=== PATIENT | female | born 1990 | race African-American/Black ===

== ENCOUNTER → 2016-09-23 | Day surgery (SDC) | payer OTHER ==
[~2016-09-23] VITALS: Ht 167.6 cm; Wt 74.8 kg
[~2016-09-23] MED LIST: DOCUSATE SODIUM 100 MG CAP PO PRN; HYDROmorphone HCL 1 MG/ML SYRINGE (J1170) IV PRN; KETOROLAC 60 MG/2 ML VIAL (J1885) As Ordered ONE; LIDOCAINE 2% INJ 100 MG/5 ML SDV (FOR ANES.) As Ordered ONE; LR 1,000 ML IV ONE; LR 1,000 ML IV SCH; MIDAZOLAM INJ 2 MG/2 ML VIAL (J2250) As Ordered ONE; NO HOME MEDS; ONDANSETRON 4MG/2ML VIAL (J2405) As Ordered ONE; ONDANSETRON 4MG/2ML VIAL (J2405) IV PRN; PERCOCET 5MG/325MG TAB As Ordered ONE; PERCOCET 5MG/325MG TAB PO PRN; PROPOFOL 200 MG/20 ML VIAL As Ordered ONE; ROCURONIUM BROMIDE 50 MG/5 ML VIAL/SYRINGE As Ordered ONE; dexameTHASONE 4 MG/ML 1ML VIAL (J1100) As Ordered ONE; fentaNYL 100 MCG/2 ML INJECTION (J3010) As Ordered ONE; fentaNYL 100 MCG/2 ML INJECTION (J3010) IV PRN
[2016-09-23 10:54] LABS: CONTROL LINE HCG INT CTR LINE PRESENT
[2016-09-23 11:22] LABS: BASO % 0.2 % (0.0-1.0); EOS # 0.1 K/mm3 (0.0-0.50); EOS % 1.1 % (0.0-3.0); LARGE UNSTAINED CELL # 0.1 K/mm3 (0.0-0.4); LARGE UNSTAINED CELL % 1.7 % (0.0-4.0); LYMPH # 2.1 K/mm3 (1.5-6.5); LYMPH % 30.7 % (24.0-44.0); MEAN CORPUSCULAR HGB CONC 33.1 g/dl (32.0-36.5); MEAN CORPUSCULAR VOLUME 87.4 fl (80.0-96.0); MONO # 0.2 K/mm3 (0.0-0.8); MONO % 2.5 % (0.0-5.0); NEUTROPHILS # 4.2 K/mm3 (1.8-7.7); NEUTROPHILS % 63.7 % (36.0-66.0); PLATELET COUNT, AUTOMATED 246 k/mm3 (150-450); RED CELL DISTRIBUTION WIDTH 13.5 % (11.5-14.5); WHITE BLOOD COUNT 6.6 K/mm3 (4.0-10.0)
[2016-09-23 14:48] VITALS: BP 122/80
--- NOTE | 2016-09-24 20:26 | RO ---
DATE OF PROCEDURE: 09/23/2016 PREPROCEDURE DIAGNOSES: 1. Endometrial polyp. 2. Intermenstrual spotting. POSTPROCEDURE DIAGNOSES: 1. Endometrial polyp. 2. Intermenstrual spotting. OPERATIVE PROCEDURE: Operative hysteroscopy, polypectomy, dilation and curettage (D and C). SURGEON: Alberto Cordoba MD BARREL SCRAPER: Krishna Jones MD ANESTHESIA: Jerald Reyez CRNA, general anesthesia. IV FLUIDS: 900 mL isotonic fluid. ESTIMATED BLOOD LOSS: 10 mL URINE OUTPUT: 50 mL in and out catheter. COMPLICATIONS: None. INDICATION FOR SURGERY: The patient was found to have an apparent polyp protruding through the cervix with postcoital bleeding and intermenstrual spotting. The risks, benefits, alternatives, indications reviewed with the patient and informed consent was obtained. DESCRIPTION OF PROCEDURE: The patient was taken to the operating room where general anesthesia was obtained per discussion with anesthesia and patient. After a proper time out was performed and reverification of a negative test, the patient was prepped and draped in normal sterile fashion. An in and out catheter was used to drain the bladder, 50 mL of yellow urine. The MyoSure hysteroscopy device was primed and advanced through the cervix, after the cervix was gently dilated with Hanks dilators to 17, and a single-tooth tenaculum was used to grasp the anterior lip of the cervix. This was done after speculum was placed demonstrating full complete visibility of the cervix. Advancement of the MyoSure hysteroscopy device was advanced through the fundus with clear view of the entire intrauterine contents. Bilateral ostia were visualized without difficulty. There was no noted intrauterine pathology. Upon slow transit of the hysteroscopy moving backwards toward the cervix, noticed a stalk from the lower uterine segment. This was partially removed with graspers and completed removal with a modified Riccardo-Stone forceps. The hysteroscopy was then readvanced and noticed no active bleeding from removal of the polyp site as well as no other endometrial polyps. Lining appears thin without abnormalities. After the hysteroscopy was removed, a gentle curettage was performed in 360 degrees fashion until a good uterine cry was noted. The contents of the curettage and polyp were sent for analysis. The instruments were removed. Visualization of the cervix demonstrated no active bleeding. All instruments were removed from the patient's vagina. Needle, lap, sponge counts correct times three. The patient was taken to the PACU in stable condition. No antibiotics were required prior to beginning of the surgery. Radha Cordoba OB-POND SUPERVISOR [facility]
== END ==
LOC: M SDC 10:03
PROVIDERS: ATTEND Student in an Organized Health Care Education/Training Program
DX: N84.1 Polyp of cervix uteri (principal); N93.9 Abnormal uterine and vaginal bleeding, unspecified; Z87.891 Personal history of nicotine dependence
CPT/HCPCS: 36415; 58558; 84703; 85025; 86850; 86900; 86901; 88305; J1100; J1885; J2250; J2405; J3010